=== PATIENT | female | born 1960 | race Caucasian/White ===

== ENCOUNTER → 2016-11-06 | Outpatient (CLI) | payer MEDICARE, MEDICAID ==
[~2016-11-06] MED LIST: COD LIVER OIL473 ML PO; ONE DAILY FOR1 EAC2 PO
== END ==
LOC: GNEU 10:00
DX: R56.9 Unspecified convulsions (principal); Z53.8 Procedure and treatment not carried out for other reasons

== ENCOUNTER 2016-12-26 16:00 | Inpatient (IN) | payer MEDICARE, MEDICAID ==
[~2016-12-26] VITALS: Ht 134.6 cm; Wt 51.5 kg
--- NOTE | ~2016-12-26 | CON ---
PATIENT'S NAME: ALDEN SWEENEY [facility] AGE: 56 Y [address] ROOM: [id number] [place], [place] [address] LOCATION: [facility] ADMIT DATE: 12/27/2016 Consultation DISCHARGE DATE: FAMILY PHYSICIAN: PHYSICIAN, NO ATTENDING PHYSICIAN: Ok ADRIAN DATE OF CONSULTATION: 12/27/2016 HISTORY OF PRESENT ILLNESS: Ms. Sweeney was a transfer patient here from [place], [place]. She is the patient who has Down syndrome as well as a cardiac pacemaker by the physician senior underwriting assistant, Dr. Latham, who stated that the patient had a generalized seizure at home and I recommended the start of Dilantin on this patient. According to the family member, the patient was perhaps a lot more sleepy than normal, especially over the past few days. There was even a question of whether she had a generalized seizure going back about a month ago according to the mother. It seems as though possibly the mother may have known about this but was not sure. This was a generalized seizure according to one family member. The patient was increasingly sleepy and was unresponsive one time when she came into the room and suddenly had difficulty with her breathing, was breathing somewhat heavily and shallow. She had tonic activity of her limbs but no clonic activity. Based upon the findings that she was clearly postictal with poor mental status and at her baseline, it was assumed that she had a generalized seizure plus the fact that the patient was very rambunctious and was difficult to get any imaging on her. She was sent here for further workup up. When I saw the patient with the hospitalist, she was essentially friendly looking at me smiling and following basic commands. Her mother said that she appeared to be baseline, however 1 or 2 hours later, the patient was becoming much more sleepy. We planned to get a noncontrast CT because the patient could not have an MRI. The CT scan on the evening of the admission showed bilateral subdural hematomas. These bilateral subdural hematomas were quite large and somewhat acute as there was hyperdensity seen, though the exact date of the onset is unclear. I never got a history that the patient had any falls but apparently the mother said that she had a fall. I asked numerous times about any injury, but I never received information concerning this. I called Dr. Fuentes a neurosurgeon to assess the patient and he promptly spoke to the family and said that she needed evacuation of her subdural hematomas with shivani holes. She did indeed undergo drainage of these subdural hematomas bilaterally and she was doing well. PAST MEDICAL HISTORY: History of permanent pacemaker, Down syndrome, congenital heart disease status post surgical correction. She also has sick sinus syndrome. PAST SURGICAL HISTORY: PATIENT'S NAME: ALDEN SWEENEY [facility] AGE: 56 Y [address] ROOM: [id number] [address] LOCATION: [facility] ADMIT DATE: 12/27/2016 Consultation DISCHARGE DATE: FAMILY PHYSICIAN: PHYSICIAN, GEORGETTE ATTENDING PHYSICIAN: Ok ADRIAN Permanent pacemaker for her congenital heart defect. FAMILY HISTORY: Her father has Parkinson disease. SOCIAL HISTORY: She lives with her family. CURRENT MEDICATIONS: Here in the hospital include Dilantin 100 mg 3 times a day. REVIEW OF SYSTEMS: This is a 56-year-old female patient, who has Down syndrome, had a generalized seizure, likely in the setting of having an injury, possibly a fall. The patient has no hematoma of the head. She did have a subdural hematoma which is now relieved with shivani hole procedures under Dr. Fuentes. The patient is doing well. CARDIAC: She does have congenital heart disease. She had some type of surgery to her heart, thus far the mother does not know the surgery. She has a permanent pacemaker in place. She does not need any anticoagulation. The rest of the 10-point review of systems other than the cardiac and neurologic presentation is within normal limits. PHYSICAL EXAMINATION: VITAL SIGNS: Showed a pulse of 61 and regular, respiration rate 12, blood pressure 102/52, temperature is 99.5. NEUROLOGIC: Cranial Nerves: Pupils equal and reactive to light accommodation. Extraocular muscles intact. There is normal facial symmetry. The patient has small appendages and body status is short. There is complete movement of all limbs with normal bulk and tone of the muscles. The patient was not ambulated. IMPRESSION: The patient is now status post shivani hole procedure for subdural hematoma. She is doing well. From a neurologic perspective, she will continue to do just fine. The injury associated with the subdural is unknown to me but possibly related to a head trauma. From neurologic perspective, since she is stable, she will be followed along on the Neurosurgical Service. We will get Dilantin levels, make sure that she is therapeutic on this Dilantin. For now, we will keep her on this medication, but I am thinking about the possibility of discontinuing the antiseizure medication since the etiology was clearly with new onset of a subdural. We may want to get a baseline EEG based upon the patient having been placed on antiepileptic medications at this point. PATIENT'S NAME: ALDEN SWEENEY [facility] AGE: 56 Y [address] ROOM: [id number] [address] LOCATION: [facility] ADMIT DATE: 12/27/2016 Consultation DISCHARGE DATE: FAMILY PHYSICIAN: PHYSICIAN, GEORGETTE ATTENDING PHYSICIAN: Ok ADRIAN MD TALI CLEARY/sean /[id number] d: 12/29/162107 t: 01/15/17 1728, CONSULTATION REPORT
--- NOTE | ~2016-12-26 | OR ---
PATIENT'S NAME: ALDEN SWEENEY [facility] AGE: 56 Y [address] ROOM: [address] [address] LOCATION: [facility] ADMIT DATE: 12/27/2016 OR/Procedure Report DISCHARGE DATE: FAMILY PHYSICIAN: PHYSICIAN, NO ATTENDING PHYSICIAN: Ok ADRIAN SURGEON: Umu Fuentes MD VEST TAILOR: Yazmin Padilla. DATE OF PROCEDURE: 12/27/2016 PREOPERATIVE DIAGNOSIS: Bilateral chronic subdural hematoma. POSTOPERATIVE DIAGNOSIS: Bilateral chronic subdural hematoma. PROCEDURES PERFORMED: 1. [place] hole evacuation of left chronic subdural hematoma. 2. [place] hole evacuation of right subdural hematoma. ANESTHESIA: General. ANESTHESIA PROVIDER: Jose G Barry MD. HISTORY: The patient is a 56-year-old female with a history of Down syndrome. The patient reportedly fell about a month ago and hit her head. On the 26 of December, she had a seizure and was admitted to [facility]. CT scan of the head showed bilateral chronic subdural hematomas. The patient's level of responsiveness had declined and she was no longer able to speak whereas she was speaking before, also she was no longer ambulatory whereas she was ambulatory before. With the size of the subdural hematomas and the noticeable decline in her level of function, surgery was recommended. The procedure of shivani hole evacuation of subdural hematoma was explained to the patient's power of product development assistant. With her consent, the patient was brought to the operating room for surgery. PROCEDURE IN DETAIL: In the operating room, the patient was placed in a supine position. Anesthesia was induced and she was intubated. Her hair was clipped. Her head was supported on a horseshoe head tennis professional. The incision lines were marked out on both sides for the shivani holes. Her whole head was prepped and draped in a sterile fashion. Local anesthesia was infiltrated. The incisions at the sites of the shivani holes were opened with a #10 blade and self-retaining retractor was used to hold the scalp open. Two shivani holes were made on each side of the head and the dura was opened. The typical dark subdural hematoma blood came out. It was quite liquid and most likely chronic in nature. After the initial drainage of the subdural blood, the red Price catheter was placed, and using the red Price catheter, the subdural space was gently irrigated. The returns came back initially dark colored, but after PATIENT'S NAME: ALDEN SWEENEY [facility] AGE: 56 Y [address] ROOM: [id number] [address] LOCATION: [facility] ADMIT DATE: 12/27/2016 OR/Procedure Report DISCHARGE DATE: FAMILY PHYSICIAN: PHYSICIAN, NO ATTENDING PHYSICIAN: Ok ADRIAN irrigation progressed, the returns became clearer on until finally there was no more dark fluid coming back. The catheters were tunneled out through separate stab incisions on the scalp and secured. [place] hole sites were then closed with appropriate suture materials. Sterile dressing was applied. The patient's anesthesia was reversed. She was extubated and taken to the recovery room to complete her recovery. I was present at and performed every aspect of this procedure, assisted at some stages by operating room nurses. There were no apparent intraoperative complications. Swabs, needles, and instruments were all accounted for the end of the case. Estimated blood loss was less than 100 mL and there was no reason for blood transfusion. I expect the patient to benefit from this procedure. Hopefully, she will be able to return to her baseline level of function. MD VIKI TABARES/sean /[id number] d: 12/30/16126 t: 01/06/172111, OPERATIVE SUMMARY
--- NOTE | ~2016-12-26 | DS ---
PATIENT'S NAME: ALDEN SEWENEY [facility] AGE: 56 Y [address] ROOM: [place] [address] LOCATION: [facility] ADMIT DATE: 12/27/2016 Discharge Summary DISCHARGE DATE: 01/03/2017 FAMILY PHYSICIAN: PHYSICIAN, NO ATTENDING PHYSICIAN: Ok Wolfe ADMITTING DIAGNOSIS: Subdural hematoma. DISCHARGE DIAGNOSIS: Subdural hematoma, status post drainage. SECONDARY DIAGNOSES: 1. Seizure. 2. Urinary retention. 3. Physical deconditioning. 4. Down syndrome. PROCEDURE: Subdural hematoma drainage by Dr. Fuentes on 12/27/2016. CONSULTATION: Neurosurgery. HISTORY OF PRESENT ILLNESS: The patient is a 56-year-old female with past medical history of Down syndrome, who presents here from [facility] with seizure. Apparently, the patient has had a fall a month ago, where there was suspicion of seizure. During that time, no imaging was done. However, the patient presented again to [facility] after the patient was found down with seizure-like activity. The patient was transferred here for further workup. The patient is baseline nonverbal, has a history of Down syndrome and responded to few questions per family member. However, the patient is ambulatory without assist. HOSPITAL COURSE: The patient was seen by Neurology and initially was started on Dilantin for seizure activity. Initially MRI was unable to be acquired due to the patient's pacemaker secondary to sick sinus syndrome. CT head was done and shows bilateral subdural hematoma with compression. Dr. Fuentes was consulted and the patient had subdural drainage on 12/27/2016. The patient was noted to have to be somnolent, status post her drainage; however, during the stay, her mentation improved. The patient now is awake, more talkative, and participating in physical therapy. Physical Therapy suggested that the patient [facility] go [facility] for extended PT/OT. The patient to be discharged today to [facility] in stable condition. CONDITION: Stable. DISPOSITION: intermediate facility. PATIENT'S NAME: ALDEN SWEENEY [facility] AGE: 56 Y [address] ROOM: [place] [address] LOCATION: [facility] ADMIT DATE: 12/27/2016 Discharge Summary DISCHARGE DATE: 01/03/2017 FAMILY PHYSICIAN: PHYSICIAN, NO ATTENDING PHYSICIAN: Ok Wolfe DISCHARGE MEDICATION: See MAR. The patient was started on Keppra 500 mg b.i.d. PENDING STUDIES: No pending studies. RECOMMENDATION: Follow up with Dr. Fuentes to assess urine retention. Urinary retention will improve. Follow up with Dr. Fuentes and primary care physician. Greater than 30 minutes was spent on discharge planning. MD TALI SANTACRUZ/sean /[id number] d: 01/04/17 0453 t: 01/04/17 1749, DISCHARGE SUMMARY
--- NOTE | ~2016-12-26 | CON ---
PATIENT'S NAME: TABBY SWEENEY [facility] AGE: 56 Y [address] ROOM: [place] [address] LOCATION: [facility] ADMIT DATE: 12/27/2016 Consultation DISCHARGE DATE: FAMILY PHYSICIAN: PHYSICIAN, GEORGETTE ATTENDING PHYSICIAN: Ok ADRIAN DATE OF CONSULTATION: 12/27/2016 CONSULT REQUESTED BY: Sabina Bob M.D. REASON FOR CONSULTATION: Subdural hematoma. PATIENT IDENTIFICATION: Tabby Sweeney is a 56-year-old female. PRESENTING COMPLAINT: Seizure. HISTORY OF PRESENT ILLNESS: History was obtained from the patient's chart as the patient is unable to provide a history. According to the records, the patient had a seizure yesterday evening while at home and was brought here from [place] for evaluation. She had been loaded with Dilantin prior to arrival here. The patient had a head CT scan today which showed bilateral chronic subdural hematomas. I was therefore consulted to see the patient. In speaking with family members, the patient's sister indicates that the patient had fallen and banged her head a month ago. According to family members, the patient is usually ambulatory but in last 2 days or so, her walking has slowed down. In addition, she used to speak a lot more than she does now but presently she is barely verbal. PAST MEDICAL HISTORY: Notable for Down syndrome. The patient has also had a pacemaker placed and has had a previous heart surgery. The surgery was for a congenital heart defect. CURRENT MEDICATIONS: Please see chart. ALLERGIES: PLEASE SEE CHART. PATIENT'S NAME: TABBY SWEENEY [facility] AGE: 56 Y [address] ROOM: [id number] [place] [address] LOCATION: [facility] ADMIT DATE: 12/27/2016 Consultation DISCHARGE DATE: FAMILY PHYSICIAN: , GEORGETTE ATTENDING PHYSICIAN: Ok ADRIAN SOCIAL HISTORY: The patient resides with family at home. REVIEW OF SYSTEMS: Unable to obtain a review of systems at this time as the patient is nonverbal. FAMILY HISTORY: According to chart, the patient's father had Parkinson's disease. PHYSICAL EXAMINATION: GENERAL: The patient is a small-framed female who was found lying on a bed on . VITAL SIGNS: Blood pressure 120/70, heart rate 71. NEUROLOGIC: The patient was drowsy but arousable. She was able to smile and say ouch but that was the extent of her verbal response. She did open her eyes spontaneously. She did not follow commands. She moved all her extremities but appeared to have increased tone in all her limbs. Gait not tested. But according to the nurses, the patient tried to walk this morning with physical therapy and barely stood up and took 1 step or 2 with maximum assistance. CARDIOVASCULAR: Heart sounds present. RESPIRATORY: The patient is not short of breath at bedside. EXTREMITIES: No cyanosis or clubbing. SKIN: No skin rashes or skin masses. HEAD: The patient's head has some deformity. EYES AND EARS: No evidence of trauma. REVIEW OF IMAGING STUDIES: The patient has had a head CT scan performed. The CT scan shows bilateral subacute subdural hematomas. There is mass effects from both sites, restricting the brain to the center. ASSESSMENT: A 56-year-old female with history of Down syndrome. The patient presented yesterday with a seizure. Head CT scan shows bilateral subacute subdural hematomas. MEDICAL DECISION MAKING: I discussed the situation with the family members and the power of consumer attorney. The power of consumer attorney is patient's sister, her name is Monique, telephone #[phone]. I explained to them that the patient has bilateral subdural hematomas and that these are likely symptomatic and quite possibly responsible for the patient's seizure. I have recommended bur hole evacuation of the subdural hematomas. I have explained the benefits of the procedure would be PATIENT'S NAME: ISIDRA SWEENE[facility] AGE: 56 Y [address] ROOM: [address] [address] LOCATION: [facility] ADMIT DATE: 12/27/2016 Consultation DISCHARGE DATE: FAMILY PHYSICIAN: PHYSICIAN, NO ATTENDING PHYSICIAN: Ok ADRIAN to relieve mass effect on the patient's brain and decrease the likelihood of further seizures. I have also gone over the risks of the procedure, especially risk of recurrent bleeding and the risk of ongoing seizures. There is also a small risk of infection. Patient's family are agreeable to patient having shivani holes done today. Hopefully, the procedure will be carried out this evening. MD VIKI TABARES/sean /[id number] d: 12/27/16 1644 t: 01/06/17 2109, CONSULTATION REPORT
--- NOTE | ~2016-12-26 | HP ---
[facility] 56 Y [address] ROOM: [place] [address] LOCATION: [facility] ADMIT DATE: 12/26/2016 History & Physical DISCHARGE DATE: FAMILY PHYSICIAN: PHYSICIAN, UNKNOWN ATTENDING PHYSICIAN: Ok ADRIAN DATE OF SERVICE: CHIEF COMPLAINT: Seizure. HISTORY OF PRESENT ILLNESS: The patient is a 56-year-old female with past medical history of Down syndrome who presents here from [facility] with seizure. Apparently, the patient was found to have a seizure activity today this morning while she is on the bed. The patient was found to have rigid muscle and increased confusion during this event. EMS was called and the patient was noted to be in postictal confusion. The patient was seen in the emergency department. She was seen by physician's res habilitation assistant, Mr. Rodriguez. Dr. Dos Santos was consulted over the phone and the patient was loaded with Dilantin 800 mg and was sent here for further evaluation. According to physician res habilitation assistant, Mr. Rodriguez, the patient was sent here because she required EEG and possible neurology consult. However, the family was told that the patient would have EEG while on sedation and also MRI while on sedation. However, the patient has a pacemaker and is not able to have MRI. The patient on baseline is nonverbal. She responds to few questions per family member. MEDICAL HISTORY: Sick sinus syndrome, status post pacemaker; Down syndrome; and congenital heart disease, status posterior surgical correction. SURGICAL HISTORY: Pacemaker placement and congenital heart defect surgery. FAMILY HISTORY: Dad has Parkinson disease. SOCIAL HISTORY: The patient lives with family. MEDICATIONS: Currently reconciled. PATIENT'S NAME: ALDEN SWEENEY [facility] AGE: 56 Y [address] ROOM: [place] [id number] LOCATION: [facility] ADMIT DATE: 12/26/2016 History & Physical DISCHARGE DATE: FAMILY PHYSICIAN: PHYSICIAN, UNKNOWN ATTENDING PHYSICIAN: Ok ADRIAN REVIEW OF SYSTEMS: Unable to obtain due to the patient is nonverbal. PHYSICAL EXAMINATION: VITAL SIGNS: Blood pressure 120/70, heart rate of 71, temperature of 98, saturating 91% on room air, and respiratory rate of 20. GENERAL APPEARANCE: The patient is awake, in no acute distress. HEAD: Normocephalic, atraumatic. FACE: The patient has Down syndrome facies. ORAL MUCOSA: Dry oral mucosa. NOSE: No nasal discharge. CHEST: Clear to auscultation bilaterally. HEART: Regular rate and rhythm. No murmurs, rubs, or gallops. ABDOMEN: Soft, nontender, and nondistended. Bowel sounds present. EXTREMITIES: No edema. FOREST SCIENCE PROFESSOR: The patient is awake, nonverbal, moves all extremities. MUSCULOSKELETAL: Range of motion intact. No obvious joint effusion. SKIN: Warm to touch. LABORATORY DATA: Done at the outside hospital shows sodium 142, potassium 4.5, creatinine 0.92, and blood glucose 94. Hemoglobin of 14.2, white blood cell count of 3.9, and platelet of 235. ASSESSMENT AND PLAN: 1. Seizure disorder. The patient is presenting with a seizure activity from outside hospital. Apparently, the patient has had similar symptoms 2 months ago when she was found down with a fall and there was suspicion for seizure activity then, but I was unable to get EEG due to the patient was unable to follow commands. The patient already received 800 mg of Dilantin and start Dilantin 100 mg t.i.d. Discussed the case with Dr. Dos Santos. Unable to get MRI because of pacemaker. We will get a CT head with and without contrast. We will have 1 mg Ativan to be given prior to CT and will also have 1 mg Ativan as needed for breakthrough seizures. The patient okay to be discharged home after a CT head. To go home on 100 mg t.i.d. Dilantin and to follow up in 2 days with her PCP with level and also to follow up with Dr. Dos Santos. 2. Down syndrome, ongoing. 3. Sick sinus syndrome, on pacemaker. Greater than 45 minutes was spent on patient care. Greater than 50% of time was spent on discussion with SONY Rodriguez, from [facility]; Dr. Dos Santos; and the patient's family. The patient's family initially were upset as they were told she would have a PEG and MRI under sedation; however, I explained that there were some slides from [place] and told them that acquiring EEG while the patient is sedated defeats the purpose and the patient is unable to get an MRI [facility] 56 Y [address] ROOM: [address] [address] LOCATION: [facility] ADMIT DATE: 12/26/2016 History & Physical DISCHARGE DATE: FAMILY PHYSICIAN: PHYSICIAN, UNKNOWN ATTENDING PHYSICIAN: Ok ADRIAN because of her pacemaker. The patient's family's questions were answered satisfactorily. To observe the patient overnight and okay to be discharged after the CT of head. Code status on admission, DNR. MD SHERYL BABCOCK/sean /[id number] D: [id number] T: [id number] HISTORY & PHYSICAL
[2016-12-26] MEDS ORDERED: COD LIVER OIL473 ML PO (17:58)
[2016-12-26] MEDS ORDERED: ONE DAILY FOR1 EAC2 PO (17:59)
--- NOTE | 2016-12-26 18:01 | NUR ---
PT is 56 y/o female admit for seizures for hospitalist. Pt is developmentally delayed and non-verbal. Resides with her mother at home. Pt resistant to some cares. No allergies. Hx pacer,CABG,teeth removed,Downs syndrome. No rx meds at home. Takes a vitamin and cod liver oil. Pt to have CT scan with contrast today yet with mild, oral sedation. Mother and family at bedside.
--- NOTE | 2016-12-27 06:35 | NUR ---
Significant Event: Unable to assess orientation due to cognitive status, has down syndrome. Dilantin given IV and NS IV running at 100ml/hr through peripheral R)hand. Restless at times. PT/OT scheduled for today. Regular diet and needs assistance with eating and drinking. Extra large urineincontinence x1. Vital signs stable & has a pacemaker. Family cares for patient at home. DNR. Follow up:
[2016-12-27 14:16] LABS: BASOPHIL # 0.1 K/uL (0.0-0.2); BASOPHIL % 1.9 %; EOSINOPHIL % 0.4 %; HEMATOCRIT 38.5 % (33.0-46.0); HEMOGLOBIN 13.2 g/dL (10.0-15.0); LYMPHOCYTE # 1.1 K/uL (0.8-4.0); LYMPHOCYTE % 24.4 %; MCH 34.6 pg (27.0-34.0); MCHC 34.3 gm/dL (32.0-36.5); MCV 100.8 fl (83.0-98.0); MONOCYTE # 0.4 K/uL (0.0-1.0); MONOCYTE % 7.8 %; MPV 8.8 fl (9.4-12.4); NEUTROPHIL % 65.5 %; NRBC % 0 /100WBC (0-0.00); PLATELET COUNT 199 K/uL (150-450); RBC 3.82 M/uL (3.50-5.50); RDW-CV 13.1 % (11.9-14.6); WBC 4.6 K/uL (4.0-11.0)
[2016-12-27 14:29] LABS: ALBUMIN 2.9 gm/dL (3.5-5.0); ANION GAP 6.9 (10.0-19.0); BLOOD UREA NITROGEN 9 mg/dL (6-24); CALCIUM 8.1 mg/dL (8.5-10.5); CO2 26 mMol/L (22-32); CREATININE 0.8 mg/dL (0.5-1.1); ESTIMATED GFR (MDRD EQUATION) > 60; MAGNESIUM 2.4 mg/dL (1.8-2.6); PHOSPHORUS 2.8 mg/dL (2.5-4.9); POTASSIUM 3.9 mMol/L (3.7-5.1); SODIUM 145 mMol/L (135-145)
[2016-12-27 14:30] LABS: CHLORIDE 116 mMol/L (96-110)
--- NOTE | 2016-12-27 15:04 | NUR ---
Attempted to visit pt twice, no family here. Tried calling mom twice, phone rang busy. Per chart review, lives with mom and family cares for her at home. Anticipate she will go home on discharge, lawn care professional will follow and assist with dc planning.
--- NOTE | 2016-12-27 19:11 | NUR ---
Significant Event: A/O X1, awakens easily, smiles at nurse. non-verbal, states "ouch". does not follow commands, 2 assist/full lift. no seizures noted. seizure pads in place. able to stand/pivot w/ 2 assist, up to chair, to surgery at 1610 for Adriel Holes. incontinent of urine, IVF R)hand, bed alarm for safety, no family @ bedside. Follow up:
--- NOTE | 2016-12-28 08:33 | NUR ---
Significant Event: Arrived from surgery yesterday. Two burrholes with two CHARLIE drains. 15ml out of each. Dressing reinforced to head for large bloody drainage. Flat position throughout the night. NS IV 75/hr through left hand. Unable to assess orientation due to cognitive status and has down syndrome. Restless at times and [place] given x1 and Morphine given x1 for pain. VSS. Follow up:
--- NOTE | 2016-12-28 19:03 | NUR ---
ULTRA HIGH FALL RISK Significant Event: Alert, unable to assess orientation due to developmentally disabled. sleepy/lethargic, does not follow commands. up in chair x1, full lift, repeat CT negative, more alert/awake this afternoon. no void, bladder scanned for >900ml. st. cath for 1100ml at 1700. saline lock R)hand, IVF L)FA. head drsg intact w/ old bloody drng noted, CHARLIE x2. Follow up:
--- NOTE | 2016-12-29 04:55 | NUR ---
Significant Event: Alert, opens eyes, smiles at nurse. Unable to assess orientation due to developmental delay, hx of Downs syndrome. Does not follow commands. Irritable with assessments, but otherwise pleasant. Ariza inserted this shift for urinary retention, 2025 ml out. Lungs clear throughout. No bm this shift, active BS. Poor appetite. Dressing to head reinforced. CHARLIE drain x 2 intact. Follow up: Jps out soon, then home with family?
--- NOTE | 2016-12-29 19:05 | NUR ---
ULTRA HIGH FALL RISK Significant Event: Alert/awake. unable to assess orientation due to developmentally delayed. good appetite -needs fed. ambulates around room x3, gait belt/2 assist, able to ambulate but is resistant with nursing staff. cooperative at times. needs lots of cues and coaxing at times. mendoza removed at 12pm, no void yet, up in chair most of shift, head drsg changed, CHARLIE x2 intact. saline lock R)FA. Follow up: see whiteboard for food/liquid preferences. CT scan in a.m. Dilantin level in a.m.
[2016-12-30 01:22] LABS: BILIRUBIN URINE NEGATIVE (NEGATIVE); BLOOD URINE 50 /UL (NEGATIVE); COLOR URINE COLORLESS (YELLOW); GLUCOSE URINE NEGATIVE (NEGATIVE); KETONE URINE 50 mg/dL (NEGATIVE); LEUKOCYTES URINE 25 /UL (NEGATIVE); NITRITE URINE NEGATIVE (NEGATIVE); PROTEIN URINE NEGATIVE (NEGATIVE); TURBIDITY URINE CLEAR (CLEAR); UROBILINOGEN URINE NORMAL (NORMAL)
[2016-12-30 01:36] LABS: BACTERIA URINE NEGATIVE (NEGATIVE); EPITHELIAL URINE 0-2 #/HPF (NEGATIVE); WBC URINE 0-2 #/HPF (NEGATIVE)
[2016-12-30 01:43] LABS: BASOPHIL # 0.1 K/uL (0.0-0.2); BASOPHIL % 0.9 %; EOSINOPHIL % 0.2 %; HEMATOCRIT 34.9 % (33.0-46.0); HEMOGLOBIN 11.7 g/dL (10.0-15.0); IMMATURE GRANULOCYTE % 0.3 %; LYMPHOCYTE # 1.6 K/uL (0.8-4.0); LYMPHOCYTE % 13.3 %; MCH 33.1 pg (27.0-34.0); MCHC 33.5 gm/dL (32.0-36.5); MCV 98.9 fl (83.0-98.0); MONOCYTE % 8.1 %; MPV 9.1 fl (9.4-12.4); NEUTROPHIL # (ANC) 9.4 K/uL (1.8-7.8); NEUTROPHIL % 77.2 %; NRBC % 0 /100WBC (0-0.00); PLATELET COUNT 178 K/uL (150-450); RBC 3.53 M/uL (3.50-5.50); RDW-CV 13.1 % (11.9-14.6); WBC 12.2 K/uL (4.0-11.0)
[2016-12-30 01:56] LABS: ANION GAP 9.3 (10.0-19.0); BLOOD UREA NITROGEN 9 mg/dL (6-24); CALCIUM 7.9 mg/dL (8.5-10.5); CHLORIDE 108 mMol/L (96-110); CO2 26 mMol/L (22-32); CREATININE 0.6 mg/dL (0.5-1.1); ESTIMATED GFR (MDRD EQUATION) > 60; POTASSIUM 3.3 mMol/L (3.7-5.1); SODIUM 140 mMol/L (135-145)
--- NOTE | 2016-12-30 04:56 | NUR ---
Significant Event:Alert, Hx of Downs syndrome. Does not follow most commands, will high five. Moves all extremities without difficulty. LS clear, BS active. VSS. Ran low grade temp. Ariza replaced for urinary retention. Dressing to head intact. Both CHARLIE drains had 0 ml out. Follow up: Continue to monitor.
--- NOTE | 2016-12-30 11:38 | NUR ---
A - PT SCREENED D/T LOS. K+ 3.3, GLU 126, BUN/COMPONENT DESIGN ENGINEER 9/0.6, WBC 12.2. PT W/ DOWN'S, DOES NOT FOLLOW COMMANDS. NO TEETH. DIET: PUREE W/ INTAKE SIPS/BITES TO 100%. FED BY STAFF. D - AT RISK W/ INADEQUATE ORAL INTAKE R/T DECREASED APPETITE AEB INTAKE RECORD. I - GOAL: 50-75% INTAKE. M/E - 1) WILL OFFER ENSURE COMPACT W/ BF AND DINNER AND MAGIC CUP AT LUNCH. F/U IN 2-4 DAYS.
--- NOTE | 2016-12-30 14:44 | NUR ---
Called and introduced self and role of care management to patients sister Tricia (POA). When I tried to ask her questions about Tabby she stated that I needed to speak with her mother and that she was too busy to talk to me right now. I attempted to call Kadie patients mother but got no answer. Will continue to follow.
--- NOTE | 2016-12-30 16:15 | NUR ---
Meet with patients mother and sister. We discussed discharge plans. Tabby normally lives with her mother by [place]. Her mother states that at home she is able to walk with her walker. She does have to help her get out of the chair and off the toliet. She is able to get herself into her bed. We discussed how she would most likely need a skilled stay prior to going home. Both mother and sister are in agreement. We talked about the skilled options in the [place] area being the [facility], [facility] and [facility]. They stated that the [facility] is closest to their home and would like a refferal sent to the [facility]. They deny any other needs at this time. Will continue to follow.
--- NOTE | 2016-12-30 18:51 | NUR ---
Significant Event: alert. unable to obtain orientation due to does not answer orientation questions/converse. only verbal responses are "no" and moaning. moves all extremities spontaneously. does not follow commands. Ariza cath patent. IV to right wrist with NS infusing at 100ml/hr. did have 1000ml bolus of normal saline this shift for SBP in 80s. CHARLIE drains x 2 discontinued by and island dsgs x 2 C/D/I. ambulates with walker/gait belt and two assist. tele with NSR. Has pacemaker. Potassium 3.3 this am- 40 meq of potassium administered po. takes meds crushed in pudding/applesauce. pureed diet. plan-SNF placement.
--- NOTE | 2016-12-31 04:04 | NUR ---
Significant Event: Alert but unable to follow commands and unable to assess orientation due to history of downs syndrome. 2A for transfers. Island barrier dressings to head c/d/i. Replaced IV tonight due to patient removing it. Patient frequently resistant to cares. Ariza catheter patent with good output. Takes medications crushed in applesauce. Follow up:
--- NOTE | 2016-12-31 10:03 | NUR ---
Called and spoke with Crystal AMAYA at the [facility]. Referral faxed.
--- NOTE | 2016-12-31 18:37 | NUR ---
Significant Event: alert. states a few words/phrases verbally. does not answer orientation questions or follow commands. DSG to left side of head surgical site C/D/I. Surgical site right side of head open to air. VSS. Ariza cath removed at 0700 with no void at 1730 and straight cath of 275. IV to left anticubital with normal saline infusing at 100ml/hr. takes meds crushed in pudding/applesauce. pureed diet/feeder. ambulates with gait belt and two assist. moderate BM this shift. discharge plan- SNF placement.
--- NOTE | 2017-01-01 05:25 | NUR ---
Significant Event: Patient is alert-disoriented x3. VSS. Does not follow commands. No S/S of pain. Temp is 100.1 (oral). SR-pacemaker in left subclavian. Room air-clear. Puree diet-crush meds give with applesauce or pudding. Ariza cath placed. Last Bm 12/31. Dressing to left side of head C/D/I. Left AC with NS at 100. Follow up: Continue to monitor.
--- NOTE | 2017-01-01 12:16 | NUR ---
Called and spoke with Crystal at [facility] regarding referral faxed. She states that her D.O.N is in the process of looking at the medications and they will have a decision later today. Will wait to hear back from Crystal.
--- NOTE | 2017-01-01 13:00 | NUR ---
Received call from Crystal at [facility]. They can accept patient for admission on Wednesday 01/03. Called and updated patients family. They would like the halfway to transport patient. I called and left message for Crystal. Waitng to hear back.
--- NOTE | 2017-01-01 14:37 | NUR ---
NON-VERBAL MOST OF TIME. HX MR. 2PA-WEAK. SBP 100'S. HR 60'S.RA.AFEBRILE. LS CLEAR. VD PER ROM. BM 12/31. UNABLE TO AQUIRE CSM, PUREE DIET REG FLUIDS. 1:1 FEEDER. HACE PACER NOT PACED. SUTERES AND STABLES TO HEAD X3. L AC NS @100. MEDS CRUSHED IN APPLESAUCE. FAMILY AT BEDSIDE. PLAN IS [facility] ON FRIDAY.
--- NOTE | 2017-01-02 03:52 | NUR ---
Significant Event: The patient is Alert to self. Moves all extremities spontaneously and to command at times. VSS. On room air. MD order to leave IV out for now. Bruising to arms. Sutures and Pedro to head open to air. Ariza draining yellow urine. Lungs are clear. Pupils are equal and reactive. No S/S of pain related to her surgery. Pureed diet with regular liquids, 1:1 feeder. Crush meds and give with pudding or applesauce. Up with 2 assist. Follow up:
--- NOTE | 2017-01-02 09:13 | NUR ---
PT MOVED TO NO RISK W/ AVERAGE INTAKE IMPROVED TO 70%. WILL CONT SUPPLEMENT TO MAINTAIN NUTRITION STATUS. WILL ASSIST NEEDED.
--- NOTE | 2017-01-02 12:08 | NUR ---
Received a call from Crystal AMAYA at the [facility]. They can pick patient up for transport at 10am 01/03. I updated Dr Wolfe, Kym CARDOZA and Jennifer LINCOLN. I also called and updated patients family.
--- NOTE | 2017-01-02 18:54 | NUR ---
Significant Event:Patient is alert to self. PERRLA. Moves extremities spontaneously. Follows commands when shown the command. Equal strength. Lungs clear. VSS on room air. Pacer, sinus rhythm. Vitals and assessments are once a shift. Bowel sounds active, no bm this shift. Mendoza catheter dc'd at 1430, no void since mendoza removal. Sutures/christel to head are open to air. No complaints of pain. Patient takes medications crushed in apple sauce. Pureed diet with thin liquids. No IV access per MD order. Follow up:Discharge tomorrow morning at 10am.
--- NOTE | 2017-01-03 04:21 | NUR ---
Significant Event: Alert to self. Says yes and know and simple phrases. Moves spontaneously and sometimes to command. PERRLA. Up 2 assist GB. Order for no tele. Vitals Q shift. RA lungs clear. Pureed diet. Ariza replaced during the night. Incesion to head open to air sutures and christel. No IV access. No complaints of pain. Follow up: To return to [facility] at 1000.
--- NOTE | 2017-01-03 09:30 | NUR ---
Patient has signed discharge orders on chart. Will be discharged to [facility]. Orders faxed by Leni Lua
== END 2017-01-03 11:15 | DRG 25 ==
LOC: GICU 16:05
PROVIDERS: Internal Medicine; ADMIT Internal Medicine
PROC: 00C43ZZ Extirpation of Matter from Intracranial Subdural Space, Percutaneous Approach (ICD-10-PCS; principal; 2016-12-27)
DX: I62.00 Nontraumatic subdural hemorrhage, unspecified (principal); G93.5 Compression of brain; G93.40 Encephalopathy, unspecified; I49.5 Sick sinus syndrome; R33.9 Retention of urine, unspecified; G40.909 Epilepsy, unspecified, not intractable, without status epilepticus; Q90.9 Down syndrome, unspecified; Z95.0 Presence of cardiac pacemaker; Q24.9 Congenital malformation of heart, unspecified
CPT/HCPCS: G0378; J0690; J1165; J2060; J2270; J7030; Q9967